=== PATIENT | female | born 1980 ===

== ENCOUNTER 2018-03-15 11:06 | Emergency (ER) | payer BC ==
[2018-03-15] MEDS ORDERED: Acetaminophen TAB* 325 MG PO ONE (11:33)
--- NOTE | 2018-03-15 11:44 | ED ---
Psychiatric Complaint - HPI Summary HPI Summary: A 37 y/o female brought in by ambulance and accompanied by police presents to the ED s/p combative resistance with police. As per EMS, 9.41. The patient was removed from her apartment by police and was slightly combative with the police. She was being removed forcibly in handcuffs because she was evicted from the residence. EMS did not take vitals, but she is stable. Patient has autism. They suspect anxiety. EMS was called for a anxiety/panic attack. EMS stated that en route she was fine, she had some episodes where her breathing was in the 20s and she wanted to call her friend, but she was okay and calmed her herself down. As per police, the patient was evicted out of her residence via court order and today was the day she was suppose to be out. Police stated that she said he was going to hurt herself. According to the patient, she does not want to her herself or hurt anyone. She stated that she doesn't want to, never wanted to, as it is "illogical". Patient is crying and agitated because the patient is losing all her stuff and "they" took her animals (4 cats and 1 dog). Patient frequently stated that she wants to call her friend named, Olesya, who is her support. She noted that she was hospitalized as a child (in the 5th grade). 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 Patient does not like the idea of staying here for a MHE, she stated that she doesn't need it. She emphaszied that she is not going to kill herself. Patient is not as she is had menstrual period recently. She denies any SOB, but has rhinorrhea from crying. Patient is not an alcoholic as it gives her headaches when she drinks. She hasn't had a drink in a long time. Patient is on several medications, but she stated that they are not working. Her PCP keeps increasing the dose, but they still do not work. Patient has been off her medications for the past month. Home Medications Medication Instructions Recorded Confirmed Type SUMAtriptan TAB* [Imitrex TAB*] 100 mg PO DAILY 07/10/12 03/15/18 History Adderal XR (NF) 20 mg PO DAILY 06/28/13 03/15/18 History Desvenlafaxine Succinate [Pristiq] 50 mg PO DAILY 06/01/14 03/15/18 History Topiramate TAB(*) [Topamax 25 MG 100 mg PO DAILY 06/01/14 03/15/18 History tab] buPROPion SR TAB* [Wellbutrin SR 300 mg PO QAM 04/14/15 03/15/18 History TAB*] - History Of Current Complaint Chief Complaint: EDPsychosocial Time Seen by Provider: 03/15/18 11:15 Hx Obtained From: Patient, EMS, Other: - POLICE Hx Last Menstrual Period: 2 WEEKS AGO Onset/Duration: Sudden Onset, Lasting Hours, Still Present Timing: Constant Severity Currently: None Character: Angry, Frustrated Aggravating Factor(s): Recent Stress - BEING EVICTED OUT OF RESIDENCE Alleviating Factor(s): Nothing Associated Signs And Symptoms: Positive: Negative Related History: Positive For: Prior Psychiatric Issues - WHEN SHE WAS IN THE 5TH GRADE Has Suicidal: Denies: Thoughts Has Homicidal: Denies: Thoughts - Allergies/Home Medications Allergies/Adverse Reactions: Allergies Allergy/AdvReac Type Severity Reaction Status Date / Time No Known Allergies Allergy Verified 03/15/18 11:16 PMH/Surg Hx/FS Hx/Imm Hx Endocrine/Hematology History: Denies: Hx Anticoagulant Therapy, Hx Diabetes, Hx Thyroid Disease Cardiovascular History: Denies: Hx Congestive Heart Failure, Hx Deep Vein Thrombosis, Hx Hypertension , Hx Myocardial Infarction, Hx Pacemaker/ICD Respiratory History: Denies: Hx Asthma, Hx Chronic Obstructive Pulmonary Disease (COPD), Hx Lung Cancer, Hx Pneumonia, Hx Pulmonary Embolism, Other Respiratory Problems/ Disorders GI History: Denies: Hx Gall Bladder Disease, Hx Gastrointestinal Bleed, Hx Ulcer, Hx Urosepsis History: Denies: Hx Kidney Stones, Hx Renal Disease Sensory History: Denies: Hx Hearing Aid Neurological History: Denies: Hx Dementia, Hx Migraine, Hx Seizures, Hx Transient Ischemic Attacks (TIA) Psychiatric History: Reports: Hx Depression Denies: Hx Anxiety, Hx Panic Disorder, Hx Schizophrenia, Hx Bipolar Disorder - Surgical History Surgery Procedure, Year, and Place: PER PATIENT, NO PRIOR SURGERIES NOTED. Infectious Disease History: No Infectious Disease History: Denies: Hx Hepatitis, Hx Human Immunodeficiency Virus (HIV), Traveled Outside the [place] in Last 30 Days Comment Only: History Other Infectious Disease - works with zoonotic diseases , such as toya flu and TB - Family History Known Family History: Negative: Diabetes - Social History Alcohol Use: Occasionally Substance Use Type: Reports: None Hx Tobacco Use: No Smoking Status (MU): Never Smoked Tobacco Type: Cigarettes Amount Used/How Often: quit 1 year ago, smoked for ~ 4 years total Review of Systems Negative: Fever, Chills Negative: Erythema Positive: Nasal Discharge - POSITIVE: RHINORRHEA DUE TO CRYING. Negative: Sore Throat Negative: Chest Pain Negative: Shortness Of Breath, Cough Negative: Abdominal Pain, Vomiting, Nausea Negative: dysuria, hematuria Negative: Myalgia, Edema Negative: Rash Neurological: Other - NEGATIVE: DIZZINESS Psychological: Other - NEGATIVE: SI AND HI All Other Systems Reviewed And Are Negative: Yes Physical Exam - Summary Physical Exam Summary: Constitutional: Well-developed, Well-nourished, Alert. (-) Distressed Skin: Warm, Dry HENT: Normocephalic; Atraumatic Eyes: Conjunctiva normal Neck: Musculoskeletal ROM normal neck. (-) JVD, (-) Stridor, (-) Tracheal deviation Cardio: Rhythm regular, rate normal, Heart sounds normal; Intact distal pulses; The pedal pulses are 2+ and symmetric. Radial pulses are 2+ and symmetric. (-) Murmur Pulmonary/Chest wall: Effort normal. (-) Respiratory distress, (-) Wheezes, (-) Rales Abd: Soft, (-) epigastric tenderness, (-) Distension, (-) Guarding, (-) Rebound Musculoskeletal: (-) Edema Lymph: (-) Cervical adenopathy Neuro: Alert, Oriented x3 Psych: No SI or HI, patient is agitated due to situation, appeared to have logical thought process Triage Information Reviewed: Yes Vital Signs On Initial Exam: Initial Vitals Temp Pulse Resp BP Pulse Ox 99 F 140 24 120/87 98 03/15/18 11:07 03/15/18 11:07 03/15/18 11:07 03/15/18 11:07 03/15/18 11:07 Vital Signs Reviewed: Yes Diagnostics - Vital Signs Vital Signs Temp Pulse Resp BP Pulse Ox 03/15/18 11:07 99 F 140 24 120/87 98 - Laboratory Lab Statement: Any lab studies that have been ordered have been reviewed, and results considered in the medical decision making process. Course/Dx - Course Course Of Treatment: A 37 y/o female brought in by ambulance and accompanied by police presents to the ED s/p combative resistance with police. As per EMS, 9.41. The patient was removed from her apartment by police and was slightly combative with the police. She was being removed forcibly in handcuffs because she was evicted from the residence. EMS did not take vitals, but she is stable. Patient has autism. They suspect anxiety. EMS was called for a anxiety/panic attack. EMS stated that en route she was fine, she had some episodes where her breathing was in the 20s and she wanted to call her friend, but she was okay and calmed her herself down. As per police, the patient was evicted out of her residence via court order and today was the day she was supposed to be out. Police stated that she said he was going to hurt herself. According to the patient, she does not want to her herself or hurt anyone. She stated that she doesn't want to, never wanted to, as it is "illogical". Patient is crying and agitated because the patient is losing all her stuff and "they" took her animals (4 cats and 1 dog). Patient frequently stated that she wants to call her friend named, Olesya, who is her support. She noted that she was hospitalized as a child (in the 5th grade). 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 Patient does not like the idea of staying here for a MHE, she stated that she doesn't need it. She emphaszied that she is not going to kill herself. Patient is not as she is had menstrual period recently. She denies any SOB, but has rhinorrhea from crying. Patient is not an alcoholic as it gives her headaches when she drinks. She hasn't had a drink in a long time. Patient is on several medications, but she stated that they are not working. Her PCP keeps increasing the dose, but they still do not work. Patient has been off her medications for the past month. Physical examination findings significant for no SI or HI, patient is agitated due to situation, appeared to have logical thought process. No laboratory scans were done. No laboratory screens were done. In the ED course, the patient received Tylenol and Xanax. Patient will be discharged with a diagnosis of adjustment disorder and homelessness. She will be sent home with a prescription for Xanax and is to take medications as prescribed. Patient is to follow up with primary care provider and [facility] in 2-3 days. Patient is to return to ED for any new or worsening symptoms. Patient is agreeable with this plan. Assessment/Plan: NO STATEMENT OF SELF HARM. NO PRIOR SI ATTEMPTS. NO SUBSTANCE ABUSE. I BELIEVE THAT HER AGITATION WITH POLICE WAS DUE TO SITUATION ISSUES SHE WAS BEING REMOVED FROM HER RESIDENCE. GOALS FOR ED VISIT IS TO SECURE SOME EMERGENCY HOUSING. - Differential Dx/Clinical Impression Provider Diagnosis: Adjustment disorder, Homelessness Discharge - Sign-Out/Discharge Documenting (check all that apply): Patient Departure - DISCHARGE - Discharge Plan Condition: Stable Disposition: HOME Prescriptions: ALPRAZolam TAB* [Xanax TAB*] 0.5 mg PO Q8H PRN #10 tab MDD 3 PRN Reason: Agitation/Anxiety Patient Education Materials: Stress (ED) Referrals: Young Thomas MD [Primary Care Provider] - 3 Days [facility] [Outside] - 3 Days Additional Instructions: FOLLOW UP WITH PRIMARY CARE PROVIDER IN 2-3 DAYS. FOLLOW UP WITH [facility] IN 2-3 DAYS. TAKE MEDICATIONS PRESCRIBED. RETURN TO ED FOR ANY NEW OR WORSENING SYMPTOMS. - Attestation Statements Document Initiated by Scribe: Yes Documenting Scribe: Osmany Gutierrez Provider For Whom Scribe is Documenting (Include Credential): Scottie Ornelas MD Scribe Attestation: Osmany Farrell, scribed for Scottie Ornelas MD on 03/15/18 at 1330. Status of Scribe Document: Ready
[2018-03-15] MEDS ORDERED: ALPRAZolam TAB* 0.5 MG PO ONE (12:03)
[2018-03-15 13:56] VITALS: BP 130/84
== END 2018-03-15 13:55 | disposition home or self-care (01) ==
LOC: ED 11:06
DX: F43.20 Adjustment disorder, unspecified (principal); Z59.0 Homelessness
CPT/HCPCS: 99283; A9270-GY